=== PATIENT | male | born 1945 | race Two or more races ===

== ENCOUNTER 2023-07-28 14:21 | Emergency (ER) | payer MEDICARE ==
[~2023-07-28] VITALS: Ht 170.2 cm; Wt 75.0 kg
[2023-07-28 14:27] VITALS: TEMP 98.6; O2SAT 98
[2023-07-28] MEDS: TETANUS, DIPHTHERIA, PERTUSSIS VAC/PF 0.5ML (>10YR OLD) IM ONE (14:45)
[2023-07-28] MEDS ORDERED: BACITRACIN ZINC OINT UDPKT TOP ONE (14:45)
[2023-07-28] MEDS: ACETAMINOPHEN 325MG TABLET PO ONE (16:25)
[2023-07-28 16:29] VITALS: BP 156/81; PULSE 66; RESP 16
== END 2023-07-28 16:33 | disposition home or self-care (01) ==
LOC: ER 14:21
DX: S01.21XA Laceration without foreign body of nose, initial encounter (principal); G89.11 Acute pain due to trauma; J45.909 Unspecified asthma, uncomplicated; W18.39XA Other fall on same level, initial encounter; Y93.89 Activity, other specified; Y92.89 Other specified places as the place of occurrence of the external cause; Y99.8 Other external cause status
CPT/HCPCS: 12011; 70486; 99284